=== PATIENT | male | born 1985 | race Caucasian/White ===

== ENCOUNTER 2025-03-01 10:36 | Outpatient (REF) | payer MEDICAID, SELFPAY ==
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
[2025-03-01 11:39] LABS: MANUAL DIFF FLAG NO
[2025-03-01 11:43] LABS: Basophils Absolute Auto 0.1 X10*3/uL (0.0-0.2); Basophils Percent Auto 0.8 % (0-2); Eosinophils Absolute Auto 0.1 X10*3/uL (0.0-0.4); Eosinophils Percent Auto 1.7 % (0-4); Hematocrit 47.2 % (42.0-52.0); Hemoglobin 15.8 g/dl (14.0-18.0); Imm Gran Abs Auto 0.07 X10*3/uL (0.00-0.03); Imm Gran Pct Auto 0.9 % (0.0-0.4); Lymphocytes Absolute Auto 2.1 X10*3/uL (1.2-4.9); Lymphocytes Percent Auto 26.6 % (20-40); Mean Corpuscular HGB Conc 33.5 g/dl (31.0-36.0); Mean Corpuscular Hemoglobin 30.5 pg (27.0-33.0); Mean Corpuscular Volume 91.1 fL (80.0-98.0); Mean Platelet Volume 10.4 fL (9.4-12.4); Monocytes Absolute Auto 0.8 X10*3/uL (0.1-1.2); Monocytes Percent Auto 10.8 % (2-11); Neutrophils Absolute Auto 4.6 x10*3/uL (2.0-8.3); Neutrophils Percent Auto 59.2 % (45-73); Platelet Count 334 X10*3/uL (160-400); Red Blood Count 5.18 X10*6/uL (4.60-5.80); Red Cell Distribution Width 12.6 % (11.0-16.0); White Blood Count 7.8 X10*3/uL (4.8-10.8)
[2025-03-01 12:35] LABS: Creatinine Urine 237.63 mg/dL; Microalbum/Creatinine Ratio Ur 6.7 ug/mg cr (<30)
[2025-03-01 12:38] LABS: Anion Gap 9 (12-20); Blood Urea Nitrogen 15 mg/dL (9-16); Calcium 9.3 mg/dL (8.4-10.2); Carbon Dioxide 29 mmol/L (22-29); Chloride 103 mmol/L (96-108); Cholesterol 201 mg/dL (<200); Estimated Glomerular Filt Rate > 60; Glucose Random 98 mg/dL (60-115); HDL Cholesterol 41 mg/dL (>40); LDL Cholesterol Calculated 134 mg/dL (<100); Potassium 3.7 mmol/L (3.3-5.1); Sodium 137 mmol/L (135-145); Triglycerides 131 mg/dL (<150)
[2025-03-01 12:46] LABS: TSH reflex Free T4 0.39 uIU/mL (0.32-4.0)
[2025-03-02 08:46] LABS: HBS Num1 > 1000.00 mIU/mL (0-7.99); HBc Num1 0.08 S/CO (0.00-0.79); HBsAGNum1 0.29 S/CO (0.00-0.99); Hepatitis B Core Antibody Nonreactive (Nonreactive); Hepatitis B Surface Antigen Negative (Negative); ~HepC Num1 0.11 S/CO (0.00-0.79); ~Hepatitis B Surface Antibody REACTIVE (Nonreactive); ~Hepatitis C Antibody Nonreactive (Nonreactive)
== END 2025-03-01 10:37 | disposition home or self-care (01) ==
LOC: HO.HHCL 10:36
PROVIDERS: PCP Nurse Practitioner; Visit Provider Nurse Practitioner
DX: I10 Essential (primary) hypertension (principal); R03.0 Elevated blood-pressure reading, without diagnosis of hypertension; Z13.9 Encounter for screening, unspecified
CPT/HCPCS: 36415; 80048; 80061; 82043; 82570; 84443; 85025; 86704; 86706; 86803; 87340

== ENCOUNTER 2025-08-30 09:09 | Outpatient (REF) | payer MEDICAID, SELFPAY ==
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
--- OUTSIDE RECORDS SUMMARY | 2025-08-30 09:39 | XMS_ITS | Encounter Summary ---
Author Organization [employer] Address [address] [facility] 7[address] [place] [address] Care Team Providers Care Business Analytics Analyst Name Role Phone Maria Eugenia Van NP Primary Care Provider [phone] Reason for Visit * Reason Onset Date Comments October recall 08/27/2025 Encounter Details Date Type Department Care Team (Late st Contact Info) Description 08/27/2025 Telephone [facility] [address] [place] [address] Maria Eugenia Van NP [address] [place] [address] October recall Social History Tobacco Use Types Packs/Day Years Used Date Smoking Tobacco: Never Smokeless Tobacco: Never Depression Answer Date Recorded Patient Health Questionnaire-9 Score 1 01/30/2025 Patient Health Questionnaire-9 Score 1 01/30/2025 Last PHQ-9: Questionnaire Data Not on file 0 01/30/2025 Housing Stability Answer Date Recorded What is [...] Date Recorded Patient Health Questionnaire-2 Score 0 01/30/2025 Internet Access Answer Date Recorded Internet Access [...] encounter Miscellaneous Notes * Telephone Encounter - Anselmo Kraus [place] - 08/27/2025 1:25 PM EST T/C placed to pt for scheduled follow up appointment. NISHA shanthi for pt to call back and scheduled appointment documented in this encounter Plan of Treatment Not on file documented as of this encounter Visit Diagnoses Not on filedocumented in this encounter Additional Health Concerns Assessment Noted Time PHQ-9 Depression Total Score: 1 01/31/20 25 10:04 AM EDT documented as of this encounter Care Teams Business Analytics Analyst Relationship Specialty Start Date End Date Maria Eugenia Van NP [address] [place] [address] PCP - General Family Medicine 05/16/24 documented as of this encounter
--- OUTSIDE RECORDS SUMMARY | 2025-08-30 09:39 | XMS_ITS | Clinical Summary ---
Author Organization [employer] Address [address] [facility] [address] [place] [address] Care Team Providers Care Electronic Service Technician Name Role Phone Maria Eugenia Van NP Primary Care Provider [phone] Allergies No known active allergies Medications Blood Pressure Monitoring kitIndications:Hy pertension, unspecified type 1 Units Once per day. 1 kit 5 Active olmesartan (BENIcar) 5 MG tabletIndications :Primary hypertension Take 2 tablets (10 mg) by mouth Once per day. 180 tablet 2 08/01/2025 4:44 PM EST 03/09/20 26 Active Active Problems Problem Noted Date Diagnosed Date Mixed hyperlipidemia 06/12/2025 Assessment & Plan (06/12/2025 6:23 PM EDT): -elevated LDL with borderline normal HDL -discussed recommendation to start moderate intensity statin for primary prevention -patient opts to hold off on medication initiation for now. Would prefer to increase physical activity in addition to dietary changes -repeat lipid prior to next visit Primary hypertension 01/30/2025 Assessment & Plan (06/12/2025 6:26 PM EDT): -Hypertension not at goal of <140/90 mmHg. Needs improvement -Increase olmesartan to 10 mg daily. -ASCVD 10 year risk 1.6% -Reviewed diet, exercise and weight control. -continued home monitoring recommended -follow-up 1 month via telephone with team nurses. Plan to titrate med dose up to 20 mg if home BP readings remain <140/90 mmHg more than 50% of time -complete BMP 2 weeks after med increase Assessment & Plan (03/01/2025 10:48 AM EDT): -Home BP readings average mid 130's-165/83-108 mmHg confirming official diagnosis of primary hypertension -discussed initiation of antihypertensive as his diet and lifestyle are not supportive of BP readings -start olmesartan 5 mg daily -he is encouraged to complete previously ordered labs today along with new hypertension diagnosis labs -baseline EKG obtained today with NSR -ASCVD risk TBD pending lab results -he is encouraged to continue low salt/low fat diet, routine exercise, and engage in stress management Assessment & Plan (01/30/2025 10:31 AM EDT): -BP goal <130/80 mmHg as per AHA guidelines -initial reading elevated with repeat w/in acceptable ranges -he is advised to upload BP log into [employer] for my review. Discussed initiation of antihypertensive with home readings above 130/80 mmHg more than half the time. -will send prescription for Olmesartan 20 mg to [facility] pharmacy following review of BP log -metabolic labs ordered -plan to obtain baseline EKG at follow-up -he is encouraged to continue lifestyle modifications -referral for routine eye exam placed -follow-up 1 month with labs prior Resolved Problems Problem Noted Date Diagnosed Date Resolved Date Seizure disorder (CMS/HCC) 01/30/2025 0 03/01/2025 Assessment & Plan (01/30/2025 10:20 AM EDT): -patient reported history -followed by [facility] neurology Encounters Date Type Department Care Team Description 08/27/2025 Telephone [facility] [address] [place] [address] Maria Eugenia Van NP October07/16/2025 Telephone [facility] [address] [place] [address] Maria Eugenia Van NP Blood Pressure Check 07/11/2025 Telephone [facility] [address] [place] [address] Maria Eugenia Van NP 06/12/2025 9:45 AM EDT Office Visit [facility] [address] [place] [address] Maria Eugenia Van NP Primary hypertension (Primary Dx); Mixed hyperlipidemia 06/12/2025 Results Follow-Up [facility] [address] [place] [address] Maria Eugenia Van NP Hepatitis C Antibody with Reflex to HCV, RNA, Quantitative, Real-Time PCR, Hepatitis B surface antigen, EIA, Hepatitis B Core Antibody, Total, Additional followed-up results: 3 06/12/2025 Results Follow-Up [facility] [address] [place] [address] Maria Eugenia Van NP Lipid Panel, Standard, Basic Metabolic Panel, Albumin, Random Urine W/Creatinine 06/12/2025 Travel 06/05/2025 Patient Outreach [facility] [address] [place], [place] [phone] Maria Eugenia Van NP Pre-visit Planning ([facility] unable to reach [facility] ) from Last 3 Months Immunizations Immunization Administration Dates Next Due Pfizer Covid-19 Vaccine 12+ 09/09/2009 TD (adult), 2 Lf tetanus tox oid, preservative free, adsorbed 05/18/2018,09/09/2009 Tdap 03/06/2013 Family History Medical History Relation Name Comments Hypertension Maternal Grandfather Stomach cancer Maternal Grandmother Heart attack Mother Relation Name Status Comments Maternal Grandfather Maternal Grandmother Mother Social History Tobacco Use Types Packs/Day Years Used Date Smoking Tobacco: Never Smokeless Tobacco: Never Tobacco Cessation:Counseling Given: Not Answered Depression Answer Date Recorded Patient Health Questionnaire-9 [...] not to disclose 2024 10:41 AM EDT Last Filed Vital Signs Vital Sign Reading Time Taken Comments Blood Pressure 140/86 06/12/2025 10:46 AM EDT Pulse 88 06/12/2025 10:03 AM EDT Temperature 36.6 C (97.8 F) 06/12/2025 10:03 AM EDT Respiratory Rate 14 06/12/2025 10:03 AM EDT Oxygen Saturation 99% 03/01/2025 10:10 AM EDT Inhaled Oxygen Concentration - - Weight 82.7 kg (182 lb 6.4 oz) 06/12/2025 10:03 AM EDT Height 172.7 cm (5' 8 ) 06/12/2025 10:03 AM EDT Body Mass Index 27.73 06/12/2025 10:03 AM EDT Plan of Treatment Health Maintenance Due Date Last Done Comments Family Planning (PISQ) 2000 HPV Vaccines (1 - Male 3-dos e series) 2000 COVID-19 Vaccine (2 - 2024-2 6 season) 2025 09/09/2009 Influenza Vaccine (#1) 2025 SDOH Screening 12/21/2025 12/21/2024 Alcohol/Substance Use Screening 01/30/2026 01/30/2025 Depression Screening 01/30/2026 01/30/2025, 01/30/2025 Disability Screening 03/01/2026 03/01/2025 Tobacco Screening 06/12/2026 06/12/2025 DTaP/Tdap/Td Vaccines (3 - T d or Tdap) 05/18/2028 05/18/2018, 03/06/2013, 09/09/2009 Lipid Panel 03/01/2030 03/01/2025, 11/12/2022 Zoster Vaccines (1 of 2) 12/17/2035 RSV Patients and Patients Aged 60 years or older (1 - 1-dose 75+ series) 2060 HIV Screening Completed 11/12/2022 Hepatitis C Screening Completed 03/01/2025 HIB Vaccines Aged Out No longer eligi ble based on patient's age to complete this topic Hepatitis A Vaccines Aged Out No long er eligible based on patient's age to complete this topic Hepatitis B Vaccines Discontinued IPV Vaccines Aged Out No longer eligi ble based on patient's age to complete this topic Meningococcal B Vaccine Aged Out No l onger eligible based on patient's age to complete this topic Meningococcal Vaccine Aged Out No savanah abida eligible based on patient's age to complete this topic Pneumococcal Vaccine: Pediatrics (0 to 5 Years) and At-Risk Patients (6 to 49) Years Aged Out No longer eligible based on patient's age to complete this topic RSV under 20 months Aged Out No longe r eligible based on patient's age to complete this topic Rotavirus Vaccines Aged Out No longer eligible based on patient's age to complete this topic Procedures Procedure Name Priority Date/Time Associated Diagnosis Comments HEPATITIS C AB W/REFL TO HCV RNA, QN, PCR Routine 03/01/2025 10:44 AM EDT Encounter for health-related screening LIPID PANEL, STANDARD Routine 03/01/2025 10:44 AM EDT Elevated blood pressure reading without diagnosis of hypertension HIV 1 RNA, QN PCR W/RFL FAUSTO (RTI,PI,INTEGRASE) Routine 11/12/2022 2:37 PM EST Routine screening for STI (sexually transmitted infection) from Last 3 Months or Most Recently Relevant to Health Maintenance Results * Hepatitis C Antibody with Reflex to HCV, RNA, Quantitative, Real-Time PCR (03/01/2025 10:44 AM EDT) Hepatitis C Antibody Nonreactive Nonreactive [facility] Comment:Antibodies to HCV no t detected; does not exclude early acuteHCV infection. Blood Venous blood specimen / Unknown 03/01/2025 10:44 AM EDT 03/01/2025 11:36 AM EDT Maria Eugenia Van CORE MAKER HELPER LAB BLOOD ORDERABLES Final Resu lt [facility] [address] [place] [phone] * (ABNORMAL) Lipid Panel, Standard (03/01/2025 10:44 AM EDT) Triglycerides 131 <150 mg/dL [facility] Comment:Desirable Triglyceri de: less than 150 mg/dLBorderline High Triglyceride 150-199 mg/dLHigh Triglyceride: 200-499 mg/dLVery High Triglyceride: greater than or equal to 5OO mg/dL Cholesterol 201(H) <200 mg/dL [facility] Comment:Desirable Cholestero l: less than 200 mg/dLBorderline High Cholesterol: 200-239 mg/dLHigh Cholesterol: greater than 239 mg/dL LDL Cholesterol Calculated 134(H) <100 mg/dL [facility] Comment:Desirable LDL: less than 100 mg/dLNear Optimal/Above Optimal LDL: 110- 129 mg/dLBorderline High LDL: 130-159 mg/dLHigh LDL: 160-189 mg/dLVery High LDL: greater than or equal to 190 mg/dL HDL Cholesterol 41 >40 mg/dL [facility] Comment:Desirable HDL: great er than 40 mg/dL Note: This HDL assay may give artificially low results in patients with liver disease. Blood Venous blood specimen / Unknown 03/01/2025 10:44 AM EDT 03/01/2025 11:36 AM EDT Maria Eugenia Van CORE MAKER HELPER LAB BLOOD ORDERABLES Final Resu lt [facility] [address] [place] [phone] * HIV-1 RNA, Quantitative, Real-Time PCR with Reflex to Genotype (RTI, PI, Integrase) (11/12/2022 2:37 PM EST) HIV 1 RNA, QN PCR NOT DETECTED copies/mL [facility] [employer] [facility], HIV 1 RNA, QN PCR NOT DETECTED Log copies/mL [facility] [employer] [facility], Comment: REFERENCE RANGE: NOT DETECTED copies/mL NOT DETECTED Log copies/mL This test was performed using Real-Time Polymerase Chain Reaction. Reportable range is 20 to 10,000,000 copies/mL (1.30-7.00 Log copies/mL). 11/12/2022 2:37 PM EST 11/12/2022 2:38 PM EST Narrative [facility] - 11/16/2022 6:29 PM EST FASTING:NO FASTING: NO Yoselyn Nichols FILL PLANT OPERATOR LAB BLOOD ORDERABLES Final Resu lt [address], [place] [phone] [facility], [address] [place] [phone] from Last 3 Months or Most Recently Relevant to Health Maintenance Insurance [facility] C3 HSN FULL Care Teams Electronic Service Technician Relationship Specialty Start Date End Date Maria Eugenia Van NP [address] [place] [phone] PCP - General Family Medicine 05/16/24
[2025-08-30 13:40] LABS: Anion Gap 11 (12-20); Blood Urea Nitrogen 14 mg/dL (9-16); Calcium 9.3 mg/dL (8.4-10.2); Carbon Dioxide 29 mmol/L (22-29); Chloride 103 mmol/L (96-108); Estimated Glomerular Filt Rate > 60; Potassium 4.1 mmol/L (3.3-5.1); Sodium 139 mmol/L (135-145)
[2025-08-30 13:41] LABS: Anion Gap 12 (12-20); Blood Urea Nitrogen 14 mg/dL (9-16); Calcium 9.2 mg/dL (8.4-10.2); Carbon Dioxide 28 mmol/L (22-29); Chloride 103 mmol/L (96-108); Cholesterol 235 mg/dL (<200); Estimated Glomerular Filt Rate > 60; HDL Cholesterol 36 mg/dL (>40); Potassium 3.9 mmol/L (3.3-5.1); Sodium 139 mmol/L (135-145); Triglycerides 646 mg/dL (<150)
== END 2025-08-30 09:10 | disposition home or self-care (01) ==
LOC: HO.HHCL 09:09
PROVIDERS: PCP Nurse Practitioner; Visit Provider Nurse Practitioner
DX: I10 Essential (primary) hypertension (principal); E78.2 Mixed hyperlipidemia
CPT/HCPCS: 36415; 80048; 80061